=== PATIENT | male | born 2000 | race American Indian/Alaskan Native ===

== ENCOUNTER 2021-06-24 02:41 | Emergency (ER) | payer SELFPAY ==
[2021-06-24 04:17] LABS: Basophils % (Auto) 0.4 % (0.0-1.8); Eosinophils # (Auto) 0.2 K/mm3 (0.0-0.4); Eosinophils % (Auto) 3.7 % (0.0-4.3); Hematocrit 45.9 % (35.5-45.6); Hemoglobin 14.9 gm/dl (11.8-15.2); Lymphocytes # (Auto) 3.1 K/mm3 (1.2-5.4); Lymphocytes % (Auto) 47.2 % (13.4-35.0); Mean Corpuscular HGB Conc 32 % (32-34); Mean Corpuscular Volume 82 fl (84-94); Monocytes # (Auto) 0.8 K/mm3 (0.0-0.8); Monocytes % (Auto) 12.3 % (0.0-7.3); Platelet Count 291 K/mm3 (140-440); Red Blood Count 5.58 M/mm3 (3.65-5.03); Red Cell Distribution Width 14.2 % (13.2-15.2)
[2021-06-24 04:32] LABS: Calcium 9.6 mg/dL (8.4-10.2)
[2021-06-24 04:37] LABS: Bilirubin,Urine NEG (Negative); Blood,Urine NEG (Negative); Color,Urine Amber (Yellow); Mucus,Urine FEW /HPF; Protein,Urine <15 mg/dL mg/dL (Negative)
[2021-06-24 04:49] LABS: Amphetamine Screen,Urine PRESUMPTIVE NEGATIVE; Benzodiazepines Screen,Urine PRESUMPTIVE NEGATIVE; Cannabinoid Screen,Urine PRESUMPTIVE POSITIVE; Cocaine Screen,Urine PRESUMPTIVE NEGATIVE; Methadone Screen,Urine PRESUMPTIVE NEGATIVE; Opiate Screen,Urine PRESUMPTIVE NEGATIVE
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
[2021-06-24] MEDS ORDERED: ZIPRASIDONE MESYLATE 20 MG VIAL IM ONE ×2 (05:59→06:00)
[2021-06-24] MEDS ORDERED: WATER FOR INJ Sterile (PF) 10 ML ONE (06:00)
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
[2021-06-24] MEDS ORDERED: traZODone 50 MG TAB PO SCH (13:00)
[2021-06-24] MEDS: FLUoxetine 20 MG CAP PO SCH (13:20)
[2021-06-24] MEDS ORDERED: HALOPERIDOL LACTATE 5 MG/1 ML INJ IM PRN (14:41)
[2021-06-24] MEDS ORDERED: LORazepam 2 MG/ML VIAL IM PRN (14:41)
--- NOTE | 2021-06-24 14:41 | Event Note ---
Date: 06/24/21 The patient was evaluated in the emergency department for symptoms described in the history of present illness. He/she was evaluated in the context of the global COVID-19 pandemic, which necessitated consideration that the patient might be at risk for infection with the virus that causes COVID-19. Institutional protocols and algorithms that pertain to the evaluation of patients at risk for COVID-19 are in a state of rapid change based on information released by regulatory bodies including the CDC and federal and state organizations. These policies and algorithms were followed during the patient's care in the emergency department. Please note that these policies, procedures and recommendations changed on a rapid basis. Laboratory studies, vital signs, nursing documentation, ER documentation, and psychiatric documentation are reviewed and appreciated. Nursing team reports no acute events this morning or concerns. The patient is initially not in any acute distress during my initial ER evaluation. The patient was deemed medically suitable for psychiatric disposition and placement during his initial ER evaluation. The patient continues to remain medically suitable for psychiatric placement and disposition. He is currently pending psychiatric placement.
--- NOTE | 2021-06-25 10:29 | Progress Note ---
Subjective - Reason for Consult Consult date: 06/25/21 Reason for consult: SI - Chief Complaint Chief complaint: The patient was seen this morning. He is calm, alert and oriented x3. The patient reports doing well. He states sleep and appetite as good. He minimizes the extent of his depression. He denies depression, denies any current suicidal/homicidal ideation and denies hallucinations. REVIEW OF SYSTEMS Constitutional: Negative for weight loss ENT: Negative for stridor Respiratory: Negative for cough or hemoptysis All other systems reviewed and are negative MENTAL STATUS EXAMINATION General Appearance and Behavior: Age appropriate, good hygiene, wearing appropriate clothes. calm, cooperative Cooperation: Cooperative Psychomotor Behavior: Psychomotor normal Mood: "good" Affect and affective range: congruent with stated mood Thought Process: Goal directed Thought Content: Reality oriented Speech:Normal Suicidal Ideation: Denies Homicidal Ideation: Denies Hallucinations: Denies Delusions:None Impulse Control: Limited Insight and Judgment: Limited insight and good judgment Memory: Limited Attention: distracted Orientation: a/o x 3 Assessment (1) Major depressive disorder (2) Current Visit: Yes Status: Acute Continue home medications. DC 1013 Treatment Plan Continue home medications. Continue Prozac 20mg po Daily Continue Trazodone 50mg po QHS Risks, benefits and alternatives of medications discussed with the patient, questions answered and consent obtained from patient. PSYCHOTHERAPY: Supportive psychotherapy provided MEDICAL: Per primary team DELIRIUM PRECAUTIONS: Please re-orient patient frequently, keep lights on during the day, and minimize benzodiazepines and opiates as these medications could worsen patient's confusion. MANAGER REGIONAL SALES: per primary DISPOSITION: Do not recommend acute psychiatric treatment. Hydroelectric Station Chief with pro vide patient with out patient resources and safety plan. Will sign off. Please contact with any questions and/or concerns. Case discussed with Dr. Tovar who agrees with current disposition Medications and Allergies Mental Status Exam - Vital signs Last Vital Signs Temp 98.4 F 06/25/21 09:36 Pulse 104 H 06/25/21 09:36 Resp 18 06/25/21 09:36 BP 130/83 06/25/21 09:36 Pulse Ox 100 06/25/21 09:36
[2021-06-25] MEDS: FLUoxetine 20 MG CAP PO SCH (12:31)
[2021-06-26 08:20] VITALS: BP 155/82
== END 2021-06-26 08:20 | disposition still patient (30) ==
LOC: ED 02:41
DX: F23 Brief psychotic disorder (principal); F17.200 Nicotine dependence, unspecified, uncomplicated; J45.909 Unspecified asthma, uncomplicated; F12.90 Cannabis use, unspecified, uncomplicated; Z20.822 Contact with and (suspected) exposure to COVID-19
CPT/HCPCS: 36415; 80048; 80307; 81001; 85025; 96372; 99284; J1630; J2060; J3486; U0003; 80320; G0480